=== PATIENT | female | born 1970 | race Caucasian/White ===

== ENCOUNTER 2019-03-01 10:51 | Observation (INO) | payer OTHER ==
[2019-03-01] MEDS ORDERED: DEMEROL 50 MG SDV IV ONE (11:49)
[2019-03-01] MEDS ORDERED: VERSED 5 MG/5 ML IV ONE (11:49)
[2019-03-01] MEDS ORDERED: Sodium Chloride 0.9% 1000 ML 1,000 ML IV STA (12:29)
[2019-03-01] MEDS ORDERED: PHARMACY DOSING REQUIRED: VANCOMYCIN IV ONE (12:29)
[2019-03-01] MEDS ORDERED: PHARMACY DOSING REQUEST MC ONE (12:47)
[2019-03-01] MEDS: MORPHINE SULFATE 2 MG INJ IV PRN ×2 (12:59→22:17)
[2019-03-01] MEDS: Sodium Chloride 0.9% 1000 ML 1,000 ML IV SCH (13:00)
[2019-03-01 13:01] LABS: Absolute Neutrophil Ct (ANC) 7.92 (1.4-6.9); BASOPHIL % 0.2 % (0.0-0.4); Basophil (Absolute #) 0.02 (0-0.4); Eosinophil % 0.7 % (0.00-5.0); Eosinophil (Absolute #) 0.09 (0-0.5); Hematocrit 39.9 % (35-47); Hemoglobin 13.3 gm/dl (12.0-16.0); Lymphocyte (Absolute #) 3.49 (1.0-4.6); Lymphocytes % 27.3 % (24.0-44.0); Mean Cell Volume 88.1 fl (78-100); Mean Corpuscular Hemoglobin 29.4 pg (26-32); Mean Corpuscular Hgb Concent. 33.3 g/dl (32-36); Monocyte (Absolute #) 1.28 (0.0-1.3); Neutrophil % 61.8 % (36.0-66.0); Platelet Count 293 K/mm3 (150-450); Red Blood Count 4.53 M/mm3 (4.1-5.4); Red Cell Distribution Width 13.5 % (11.5-14.0); White Blood Count 12.8 K/mm3 (4.0-10.5)
[2019-03-01 13:04] LABS: Lactic Acid 1.9 (0.4-2.0)
[2019-03-01] MEDS ORDERED: NON-FORMULARY ITEM (Naratriptan Hcl [Amerge] 2.5 MG) PO PRN (13:55)
[2019-03-01] MEDS ORDERED: NON-FORMULARY ITEM (Semaglutide [Ozempic] 0.25 MG) SQ SCH (14:00)
[2019-03-01] MEDS ORDERED: MEDICATION INTERVENTION MC SCH ×2 (14:15→14:45)
[2019-03-01 14:20] LABS: ALBUMIN 4.2 g/dL (3.5-5.0); ALKALINE PHOSPHATASE 78 U/L (38-126); ANION GAP 16.4 MEQ/L (5-15); BLOOD UREA NITROGEN 10 mg/dL (7-17); CHLORIDE 102 mmol/L (98-107); Calcium 10.1 mg/dL (8.4-10.2); Carbon Dioxide 28 mmol/L (22-30); Creatinine 1 0.58 mg/dL (0.52-1.04); Glucose 202 mg/dL (74-106); Potassium 4.3 mmol/L (3.5-5.1); SGOT/AST 17 U/L (14-36); SGPT/ALT 11 U/L (0-35); SODIUM 141 mmol/L (137-145); Total Protein 7.8 g/dL (6.3-8.2)
[2019-03-01] MEDS: CLINDAMYCIN-D5W 600 MG/50 ML*** 600 MG/50 ML BAG IV SCH ×2 (14:21→21:12)
[2019-03-01] MEDS: VANCOMYCIN 1 GRAM/200 ML BAG 1 GM/200 ML PIGGYBACK IV SCH ×2 (14:21→22:22)
[2019-03-01] MEDS: TORAdol 30 mg Injection IV PRN (14:45)
[2019-03-01] MEDS: DESYREL 50 MG PO SCH ×2 (14:45→22:21)
[2019-03-01] MEDS ORDERED: MOTRIN 400 MG PO SCH (15:00)
--- NOTE | 2019-03-01 17:54 | PCM.HP ---
History of Present Illness - Chief Complaint Chief Complaint: cellulitis right 3rd digit for 3 days History of Present Illness: is a 48 year old female hurt by nail on her 3rd digit - Review of Systems Constitutional: No Fever, No Chills Eyes: No Symptoms Ears, Nose, & Throat: No Symptoms Respiratory: No Cough, No Short Of Breath Cardiac: No Chest Pain, No Edema, No Syncope Abdominal/Gastrointestinal: No Abdominal Pain, No Nausea, No Vomiting, No Diarrhea Genitourinary Symptoms: No Dysuria Musculoskeletal: No Back Pain, No Neck Pain Skin: Cellulitis, Induration (left 3rd digit distal phalynx), No Rash Neurological: No Dizziness, No Focal Weakness, No Sensory Changes Psychological: No Symptoms Endocrine: No Symptoms Hematologic/Lymphatic: No Symptoms Immunological/Allergic: No Symptoms Medications & Allergies Home Medications: Home Medication List Divalproex Sodium [Depakote] 1,000 mg PO BID 01/11/17 [History Confirmed ] Gabapentin 100 mg PO BID 01/11/17 [History Confirmed 03/01/19] Trazodone HCl 50 mg [Desyrel 50 mg] 50 mg PO TID 01/11/17 [History Confirmed 03/01/19] Atorvastatin Calcium 40 mg PO DAILY 03/01/19 [History Confirmed 03/01/19] Clonazepam 0.5 mg [Klonopin 0.5 MG] 0.5 mg PO HS 03/01/19 [History Confirmed 03/01/19] Escitalopram Oxalate 10 mg [Lexapro 10 MG] 10 mg PO DAILY 03/01/19 [History Confirmed 03/01/19] Famotidine 20 mg [Pepcid 20 MG] 20 mg PO BID 03/01/19 [History Confirmed 03/01/19] Ibuprofen 400 mg PO TID 03/01/19 [History Confirmed 03/01/19] Insulin Glargine,Hum.rec.anlog [Basaglar Kwikpen U-100] 70 unit SQ HS 03/01/19 [ History Confirmed 03/01/19] Lisinopril [Zestril] 2.5 mg PO DAILY 03/01/19 [History Confirmed 03/01/19] Naratriptan HCl [Amerge] 2.5 mg PO BID PRN 03/01/19 [History Confirmed 03/01/19] Semaglutide [Ozempic] 0.25 mg SQ WEEKLY 03/01/19 [History Confirmed 03/01/19] Allergies/Adverse Reactions: Allergies Allergy/AdvReac Type Severity Reaction Status Date / Time metformin AdvReac Verified 03/01/19 12:58 - Past Medical History Past Medical History: Yes Neurological History: Migraines, Seizures ENT History: No Pertinent History Cardiac History: No Pertinent History Respiratory History: No Pertinent History Endocrine Medical History: Diabetes Type II Musculoskelatal History: Arthritis GI Medical History: Ulcer History: No Pertinent History Pyscho-Social History: Anxiety, Depression Reproductive Disorders: Other Comment: HEAD CONTUSION WHILE IN [employer]. - Female History Are you now?: No - Past Surgical History Past Surgical History: Yes Neuro Surgical History: No Pertinent History Cardiac History: No Pertinent History Respiratory Surgery: No Pertinent History GI Surgical History: Cholecystectomy Genitourinary Surgical Hx: No Pertinent History Musculskeletal Surgical Hx: Orthopedic Surgery Female Surgical History: Hysterectomy Other Surgical History: CARPAL TUNNEL. LOWER BACK. - Social History Smoking Status: Never smoker Alcohol: None - Physical Exam Vital Signs: Vital Signs - 24 hr Temp Pulse Resp BP Pulse Ox 03/01/19 16:00 98.7 F 85 18 100/57 95 03/01/19 12:22 99 F 99 H 20 136/80 General Appearance: no apparent distress, alert Neurologic Exam: alert, oriented x 3, cooperative, normal mood/affect, nml cerebellar function, nml station & gait, sensation nml, No motor deficits Eye Exam: PERRL/EOMI, eyes nml inspection Ears, Nose, Throat Exam: normal ENT inspection, TMs normal, pharynx normal, moist mucous membranes Neck Exam: normal inspection, non-tender, supple, full range of motion Respiratory Exam: normal breath sounds, lungs clear, No respiratory distress Cardiovascular Exam: regular rate/rhythm, normal heart sounds, normal peripheral pulses Gastrointestinal/Abdomen Exam: soft, normal bowel sounds, No tenderness, No mass Back Exam: normal inspection, normal range of motion, No CVA tenderness, No vertebral tenderness Extremity Exam: normal inspection, normal range of motion, pelvis stable, inflammation, swelling, tenderness Skin Exam: normal color, warm, dry, No rash Wound Assessment: Skin/Wound Assessment Wound/Incision Assessment Start: 03/01/19 11: 50 Text: Status: Active Freq: Q6H Protocol: Document 03/01/19 14:20 BA (Rec: 03/01/19 16:28 BA [id number]) Wound/Incision Assessment Right Hand Wound Assessment Admission Wound Type cellulitis/abcessed. Drainage Amount None Drainage Odor None/Absent General Appearance Well Approximated Surrounding Tissue Bright Red Purple Wound Photo Photo Taken Yes Date: 03/01/19 Time: 12:10 Distance from Wound: bedside. Lymphatic Exam: No adenopathy Results - Labs Lab/Micro Results: Accuchecks Date 03/01/19 Time 16:30 Accucheck Value: 169 Lab Results-Last 24 Hours 03/01/19 03/01/19 03/01/19 Range/Units 12:20 12:45 12:45 WBC 12.8 H (4.0-10.5) K/mm3 RBC 4.53 (4.1-5.4) M/mm3 Hgb 13.3 (12.0-16.0) gm/dl Hct 39.9 (35-47) % MCV 88.1 (78-100) fl MCH 29.4 (26-32) pg MCHC 33.3 (32-36) g/dl RDW 13.5 (11.5-14.0) % Plt Count 293 (150-450) K/mm3 MPV 11.0 H (6-9.5) fl Gran % 61.8 (36.0-66.0) % Eos # (Auto) 0.09 (0-0.5) Absolute Lymphs (auto) 3.49 (1.0-4.6) Absolute Monos (auto) 1.28 (0.0-1.3) Lymphocytes % 27.3 (24.0-44.0) % Monocytes % 10.0 (0.0-12.0) % Eosinophils % 0.7 (0.00-5.0) % Basophils % 0.2 (0.0-0.4) % Absolute Granulocytes 7.92 H (1.4-6.9) Basophils # 0.02 (0-0.4) Sodium 141 (137-145) mmol/L Potassium 4.3 (3.5-5.1) mmol/L Chloride 102 (98-107) mmol/L Carbon Dioxide 28 (22-30) mmol/L Anion Gap 16.4 H (5-15) MEQ/L BUN 10 (7-17) mg/dL Creatinine 0.58 (0.52-1.04) mg/dL Estimated GFR > 60.0 ML/MIN Glucose 202 H (74-106) mg/dL Hemoglobin A1c (4.5-6.0) % Lactic Acid 1.9 (0.4-2.0) Calcium 10.1 (8.4-10.2) mg/dL Total Bilirubin 0.60 (0.2-1.3) mg/dL AST 17 (14-36) U/L ALT 11 (0-35) U/L Alkaline Phosphatase 78 (38-126) U/L Serum Total Protein 7.8 (6.3-8.2) g/dL Albumin 4.2 (3.5-5.0) g/dL 03/01/19 Range/Units 14:30 WBC (4.0-10.5) K/mm3 RBC (4.1-5.4) M/mm3 Hgb (12.0-16.0) gm/dl Hct (35-47) % MCV (78-100) fl MCH (26-32) pg MCHC (32-36) g/dl RDW (11.5-14.0) % Plt Count (150-450) K/mm3 MPV (6-9.5) fl Gran % (36.0-66.0) % Eos # (Auto) (0-0.5) Absolute Lymphs (auto) (1.0-4.6) Absolute Monos (auto) (0.0-1.3) Lymphocytes % (24.0-44.0) % Monocytes % (0.0-12.0) % Eosinophils % (0.00-5.0) % Basophils % (0.0-0.4) % Absolute Granulocytes (1.4-6.9) Basophils # (0-0.4) Sodium (137-145) mmol/L Potassium (3.5-5.1) mmol/L Chloride (98-107) mmol/L Carbon Dioxide (22-30) mmol/L Anion Gap (5-15) MEQ/L BUN (7-17) mg/dL Creatinine (0.52-1.04) mg/dL Estimated GFR ML/MIN Glucose (74-106) mg/dL Hemoglobin A1c 7.33 H (4.5-6.0) % Lactic Acid (0.4-2.0) Calcium (8.4-10.2) mg/dL Total Bilirubin (0.2-1.3) mg/dL AST (14-36) U/L ALT (0-35) U/L Alkaline Phosphatase (38-126) U/L Serum Total Protein (6.3-8.2) g/dL Albumin (3.5-5.0) g/dL Accuchecks Date 03/01/19 Time 16:30 Accucheck Value: 169 Assessment/Plan (1) Cellulitis of fingernail of left hand Current Visit: Yes Status: Acute Assessment & Plan: Chief Complaint Diagnosis cellulitis right 3rd digit Allergies Allergy/AdvReac Type Severity Reaction Status Date / Time metformin AdvReac Verified 03/01/19 12:58 Vital Signs (Last 24 hours) Temp Pulse Resp BP Pulse Ox 03/01/19 16:00 98.7 F 85 18 100/57 95 03/01/19 12:22 99 F 99 H 20 136/80 Home Medications Medication Instructions Recorded Confirmed Last Taken Type Atorvastatin Calcium 40 mg PO DAILY 03/01/19 03/01/19 03/01/19 History Clonazepam 0.5 mg [Klonopin 0.5 0.5 mg PO HS 03/01/19 03/01/19 02/28/19 History MG] Escitalopram Oxalate 10 mg 10 mg PO DAILY 03/01/19 03/01/19 03/01/19 History [Lexapro 10 MG] Famotidine 20 mg [Pepcid 20 20 mg PO BID 03/01/19 03/01/19 03/01/19 History MG] Ibuprofen 400 mg PO TID 03/01/19 03/01/19 03/01/19 History Insulin Glargine,Hum.rec.anlog 70 unit SQ HS 03/01/19 03/01/19 02/28/19 History [Basaglar Kwikpen U-100] Lisinopril [Zestril] 2.5 mg PO DAILY 03/01/19 03/01/19 03/01/19 History Naratriptan HCl [Amerge] 2.5 mg PO BID PRN 03/01/19 03/01/19 03/01/19 History Semaglutide [Ozempic] 0.25 mg SQ WEEKLY 03/01/19 03/01/19 03/01/19 History Current Medications Generic Name Dose Route Start Last Admin Trade Name Freq PRN Reason Stop Dose Admin Clonazepam 0.5 mg 03/01/19 22:00 Klonopin 0.5 Mg PO 03/31/19 21:59 HS JIE Divalproex Sodium 1,000 mg 03/01/19 22:[address] 250 Mg Tab PO 03/31/19 21:59 BID JIE Escitalopram Oxalate 10 mg 03/02/19 10:00 Lexapro 10 Mg PO 04/01/19 09:59 DAILY JIE Famotidine 20 mg 03/01/19 22:00 Pepcid 20 Mg PO 03/31/19 21:59 BID JIE Gabapentin 100 mg 03/01/19 22:00 Neurontin 100 Mg PO 03/31/19 21:59 BID JIE Sodium Chloride 1,000 mls @ 150 mls/hr 03/01/19 12:45 03/01/19 13:00 Sodium Chloride 0.9% 1000 Ml IV 03/31/19 12:44 150 mls/hr .[id number] JIE Administration Vancomycin HCl 1 gm in 200 mls @ 120 mls/hr 03/01/19 13:30 03/01/19 14:21 Vancomycin 1 Gram/200 Ml Bag IV 03/31/19 13:29 120 mls/hr Q12HT JIE Administration Clindamycin HCl/Dextrose 600 mg in 50 mls @ 100 mls/hr 03/01/19 14:00 14:21 Clindamycin-D5w 600 Mg/50 Ml IV 03/31/19 13:59 100 mls/hr Q8HT JIE Administration Insulin Glargine 70 unit 03/01/19 22:00 Lantus Insulin SQ 03/31/19 21:59 HS JIE Ketorolac Tromethamine 30 mg 03/01/19 14:29 03/01/19 14:45 Toradol 30 Mg Injection IV 03/06/19 14:28 30 mg Q8H PRN PRN Administration PAIN Lisinopril 2.5 mg 03/02/19 10:00 Zestril 5 Mg PO 04/01/19 09:59 DAILY JIE Miscellaneous Information 0 each 03/01/19 14:15 Medication Intervention 03/31/19 14:14 .RN TO CHECK WITH PT [facility] Miscellaneous Information 0 each 03/01/19 14:45 Medication Intervention 03/31/19 14:44 .RN TO CHECK WITH PT JIE Morphine Sulfate 2 mg 03/01/19 12:47 03/01/19 12:59 Morphine Sulfate 2 Mg Inj IV 03/06/19 12:46 2 mg Q4H PRN PRN Administration PAIN Simvastatin 40 mg 03/02/19 22:00 Zocor 20mg PO 04/01/19 21:59 HS JIE Trazodone HCl 50 mg 03/01/19 15:00 03/01/19 14:45 Desyrel 50 Mg PO 03/31/19 14:59 50 mg TID JIE Administration Discontinued Medications Generic Name Dose Route Start Last Admin Trade Name Freq PRN Reason Stop Dose Admin Sodium Chloride 1,000 mls @ 999 mls/hr 03/01/19 12:29 03/01/19 13:00 Sodium Chloride 0.9% 1000 Ml IV 03/01/19 13:29 999 mls/hr .Q1H1M STA Administration Ibuprofen 400 mg 03/01/19 15:00 Motrin 400 Mg PO 03/31/19 14:59 TID JIE Non-Formulary Medication 1 each 03/01/19 12:29 03/01/19 16:59 Pharmacy Dosing Required: Vancomycin IV 03/01/19 12:30 1 each STAT ONE Administration Non-Formulary Medication 1 each 03/01/19 12:47 03/01/19 17:00 Pharmacy Dosing Request 03/01/19 12:48 1 each STAT ONE Administration Intake & Output (Last 24 hours) 02/27/19 02/28/19 03/01/19 03/02/19 11:59 11:59 11:59 11:59 Output Total 300 Balance -300 Weight 100.5 kg Microbiology Results (Last 24 hours) 03/01/19 12:45 Blood Blood Culture Gram Stain - Pending 03/01/19 12:45 Blood Blood Culture - Pending 03/01/19 12:45 Blood Blood Culture Gram Stain - Pending 03/01/19 12:45 Blood Blood Culture - Pending Laboratory Results (Last 24 hours) 03/01/19 03/01/19 03/01/19 14:30 12:45 12:45 WBC 12.8 H RBC 4.53 Hgb 13.3 Hct 39.9 MCV 88.1 MCH 29.4 MCHC 33.3 RDW 13.5 Plt Count 293 MPV 11.0 H Gran % 61.8 Eos # (Auto) 0.09 Absolute Lymphs (auto) 3.49 Absolute Monos (auto) 1.28 Lymphocytes % 27.3 Monocytes % 10.0 Eosinophils % 0.7 Basophils % 0.2 Absolute Granulocytes 7.92 H Basophils # 0.02 Sodium 141 Potassium 4.3 Chloride 102 Carbon Dioxide 28 Anion Gap 16.4 H BUN 10 Creatinine 0.58 Estimated GFR > 60.0 Glucose 202 H Hemoglobin A1c 7.33 H Lactic Acid Calcium 10.1 Total Bilirubin 0.60 AST 17 ALT 11 Alkaline Phosphatase 78 Serum Total Protein 7.8 Albumin 4.2 03/01/19 12:20 WBC RBC Hgb Hct MCV MCH MCHC RDW Plt Count MPV Gran % Eos # (Auto) Absolute Lymphs (auto) Absolute Monos (auto) Lymphocytes % Monocytes % Eosinophils % Basophils % Absolute Granulocytes Basophils # Sodium Potassium Chloride Carbon Dioxide Anion Gap BUN Creatinine Estimated GFR Glucose Hemoglobin A1c Lactic Acid 1.9 Calcium Total Bilirubin AST ALT Alkaline Phosphatase Serum Total Protein Albumin Orders (Last 24 hours) Category Date Time Status Accucheck ACHS Care 03/01/19 12:29 Active Miscellaneous Nursing Order ROUTINE Care 03/01/19 12:[address] in Observation ROUTINE Care 03/01/19 12:32 Active Consult Surgery ROUTINE Cons 03/01/19 12:29 Active 1800 Calorie ADA Diet 03/01/19 Lunch Active Nutritional Admission Screen once Diet 03/01/19 12:44 Active BLOOD CULTURE Urgent Lab 03/01/19 12:45 Received CBC W DIFF Routine Lab 03/01/19 12:45 Completed CMP Routine Lab 03/01/19 12:45 Completed CULTURE,WOUND Routine Lab 03/01/19 Uncollected HEMOGLOBIN A1C Urgent Lab 03/01/19 14:30 Completed Lactic Acid Routine Lab 03/01/19 12:20 Completed Clindamycin 600 mg/D5w 50 ml [Clindamycin-D5w 600 mg/ Med 03/01/19 14:00 Active 50 ml] 600 mg in 50 ml IV Q8HT Clonazepam 0.5 mg [Klonopin 0.5 MG] Med 03/01/19 22:00 Active 0.5 mg PO HS Divalproex Sodium 250 mg [Divalproex DR 250 mg Tab] Med 03/01/19 22:00 Active 1,000 mg PO BID Escitalopram Oxalate 10 mg [Lexapro 10 MG] Med 03/02/19 10:00 Active 10 mg PO DAILY Famotidine 20 mg [Pepcid 20 MG] Med 03/01/19 22:00 Active 20 mg PO BID Gabapentin 100 mg [Neurontin 100 MG] Med 03/01/19 22:00 Active 100 mg PO BID Ibuprofen 400 mg [Motrin 400 mg] Med 03/01/19 15:00 Discontinued 400 mg PO TID Insulin Glargine [Lantus Insulin] Med 03/01/19 22:00 Active 70 unit SQ HS KETOROLAC trometh 30 mg Inj [TORAdol 30 mg Injection Med 03/01/19 14:29 Active ] 30 mg IV Q8H PRN PRN Lisinopril 5 mg [Zestril 5 MG] Med 03/02/19 10:00 Active 2.5 mg PO DAILY Medication Intervention Med 03/01/19 14:15 Active 0 each MC .RN TO CHECK WITH PT Medication Intervention Med 03/01/19 14:45 Active 0 each MC .RN TO CHECK WITH PT Morphine Sulfate 2 mg Inj Med 03/01/19 12:47 Active 2 mg IV Q4H PRN PRN NaCl 0.9% 1000 ml [Sodium Chloride 0.9% 1000 ML] 1,000 Med 03/01/19 12:45 Active ml IV 150 mls/hr NaCl 0.9% 1000 ml [Sodium Chloride 0.9% 1000 ML] 1,000 Med 03/01/19 12:29 Discontinued ml IV 999 mls/hr Pharmacy Dose Request: Vancomy [Pharmacy Dosing Med 03/01/19 12:29 Discontinued Required: Vancomycin] 1 each IV STAT ONE Pharmacy Dosing Request Med 03/01/19 12:47 Discontinued 1 each MC STAT ONE Simvastatin 20Mg [Zocor 20Mg] Med 03/02/19 22:00 Active 40 mg PO HS Trazodone HCl 50 mg [Desyrel 50 mg] Med 03/01/19 15:00 Active 50 mg PO TID Vancomycin/Water For Inj (Peg) [Vancomycin 1 Gram/200 Med 03/01/19 13:30 Active ml Bag] 1 gm in 200 ml IV Q12HT OT Screen per Nursing Assess ONCE OT 03/01/19 12:44 Active PT Screen per Nursing Assess ONCE PT 03/01/19 12:44 Completed Patient Care Notes (Last 24 hours) 03/01/19 15:10 Nursing Note by Shraddha Benavidez called and obtained information on patient. He said he will probably drop by late this evening but definitely tomorrow a.m. just make npoo after midnight incase finger is needing I&D. Initialized on 03/01/19 15:10 - END OF NOTE 03/01/19 14:30 Nursing Note by Jessika Owen Pt continue to c/o r hand finger pain. Called Dr Alejandra; new order received. Initialized on 03/01/19 14:30 - END OF NOTE 03/01/19 13:09 Nursing Note by Shraddha Benavidez I called consult to office and spoke with Karen. is ammunition and explosives handler but they will let me know who will round on patient. Initialized on 03/01/19 13:09 - END OF NOTE Code(s): L03.012 - CELLULITIS OF LEFT FINGER (2) Diabetes mellitus Current Visit: Yes Status: Chronic Qualifiers: Diabetes mellitus type: type 2 Diabetes mellitus rodent exterminator insulin use: unspecified rodent exterminator insulin use status Code(s): E11.9 - TYPE 2 DIABETES MELLITUS WITHOUT COMPLICATIONS
[2019-03-01] MEDS ORDERED: NEURONTIN 300 MG PO SCH (22:00)
[2019-03-01] MEDS ORDERED: INSULIN GLARGINE HUM REC ANLOG 70 UNIT SQ SCH (22:00)
[2019-03-01] MEDS ORDERED: NON-FORMULARY ITEM (Divalproex Sodium [Depakote] 1,000 MG) PO SCH (22:00)
[2019-03-01] MEDS: Klonopin 0.5 MG PO SCH (22:21)
[2019-03-01] MEDS: Lantus Insulin SQ SCH (22:22)
[2019-03-01] MEDS: Pepcid 20 MG PO SCH (22:22)
[2019-03-01] MEDS: Neurontin 100 MG PO SCH (22:22)
[2019-03-02] MEDS: Sodium Chloride 0.9% 1000 ML 1,000 ML IV SCH (00:12)
[2019-03-02] MEDS: TORAdol 30 mg Injection IV PRN ×2 (04:04→19:57)
[2019-03-02] MEDS: CLINDAMYCIN-D5W 600 MG/50 ML*** 600 MG/50 ML BAG IV SCH ×3 (06:05→21:40)
--- NOTE | 2019-03-02 08:11 | CONS ---
CONSULT DATE: 03/01/2019 REASON FOR CONSULT: Infection of right third finger. HISTORY: The patient is seen at bedside. A 48 year-old diabetic long-standing with seven to eight day history of issues with this finger. There is a black eschar in the right third finger starting at the medial paronychia and then traversing across the midline over to right paronychia. It is fluctuant. It will require I&D. She has eaten today. This does not require I&D at this moment. There is a little swelling of the proximal interphalangeal joint. There is a little swelling of finger. She has been started on antibiotics. She has some elevation. We will jules this tomorrow.
--- NOTE | 2019-03-02 09:02 | PCM.NOTE ---
Date and Time: 03/02/19901 Subjective Assessment: doing ok - Review of Systems Constitutional: No Fever, No Chills Eyes: No Symptoms Ears, Nose, & Throat: No Symptoms Respiratory: No Cough, No Short Of Breath Cardiac: No Chest Pain, No Edema, No Syncope Abdominal/Gastrointestinal: No Abdominal Pain, No Nausea, No Vomiting, No Diarrhea Genitourinary Symptoms: No Dysuria Musculoskeletal: No Back Pain, No Neck Pain Skin: No Rash Neurological: No Dizziness, No Focal Weakness, No Sensory Changes Psychological: No Symptoms Endocrine: No Symptoms Hematologic/Lymphatic: No Symptoms Immunological/Allergic: No Symptoms Objective Exam General Appearance: no apparent distress, alert Neurologic Exam: alert, oriented x 3, cooperative, normal mood/affect, nml cerebellar function, sensation nml, No motor deficits Skin Exam: normal color, warm, dry Wound Assessment: Skin/Wound Assessment Wound/Incision Assessment Start: 03/01/19 11: 50 Text: Status: Active Freq: Q6H Protocol: Document 03/02/19 02:00 MG (Rec: 03/02/19 04:14 MG [id number]) Wound/Incision Assessment Right Hand Wound Assessment Admission Wound Type cellulitis/abcessed. Drainage Amount None Drainage Odor None/Absent General Appearance Well Approximated Surrounding Tissue Bright Red Purple Comment Tip of 3rd finger on right hand red/purple, moderate edema noted Eye Exam: PERRL, EOMI, eyes nml inspection Ears, Nose, Throat Exam: normal ENT inspection, pharynx normal, moist mucous membranes Neck Exam: normal inspection, non-tender, supple, full range of motion Respiratory Exam: normal breath sounds, lungs clear, No respiratory distress Cardiovascular Exam: regular rate/rhythm, normal heart sounds Gastrointestinal/Abdomen Exam: soft, No tenderness, No mass Extremity Exam: normal inspection, normal range of motion Back Exam: normal inspection, normal range of motion, No CVA tenderness, No vertebral tenderness Pelvic Exam: deferred Rectal Exam: deferred OBJECTIVE DATA Vital Signs: Vital Signs - 24 hr Temp Pulse Resp BP Pulse Ox 03/02/19 07:16 98.6 F 75 18 108/58 92 L 03/02/19 04:00 97.9 F 79 17 99/57 93 L 03/02/19 02:23 97.9 F 77 18 119/56 96 03/02/19 00:00 97.9 F 77 18 119/56 96 03/01/19 19:30 97.9 F 87 17 105/59 95 03/01/19 16:00 98.7 F 85 18 100/57 95 03/01/19 12:22 99 F 99 H 20 136/80 Pain Assessment - Last Documented Pain Intensity 7 [facility] Intake and Output: Intake & Output 02/27/19 02/28/19 03/01/19 03/02/19 11:59 11:59 11:59 11:59 Intake Total 3159 Output Total 550 Balance 2609 Weight 100.5 kg Lab Results: Accuchecks Date 03/01/19 Time 16:30 Accucheck Value: 217 Accucheck Value: 169 Lab Results-Last 24 Hours 03/01/19 03/01/19 03/01/19 Range/Units 12:20 12:45 12:45 WBC 12.8 H (4.0-10.5) K/mm3 RBC 4.53 (4.1-5.4) M/mm3 Hgb 13.3 (12.0-16.0) gm/dl Hct 39.9 (35-47) % MCV 88.1 (78-100) fl MCH 29.4 (26-32) pg MCHC 33.3 (32-36) g/dl RDW 13.5 (11.5-14.0) % Plt Count 293 (150-450) K/mm3 MPV 11.0 H (6-9.5) fl Gran % 61.8 (36.0-66.0) % Eos # (Auto) 0.09 (0-0.5) Absolute Lymphs (auto) 3.49 (1.0-4.6) Absolute Monos (auto) 1.28 (0.0-1.3) Lymphocytes % 27.3 (24.0-44.0) % Monocytes % 10.0 (0.0-12.0) % Eosinophils % 0.7 (0.00-5.0) % Basophils % 0.2 (0.0-0.4) % Absolute Granulocytes 7.92 H (1.4-6.9) Basophils # 0.02 (0-0.4) Sodium 141 (137-145) mmol/L Potassium 4.3 (3.5-5.1) mmol/L Chloride 102 (98-107) mmol/L Carbon Dioxide 28 (22-30) mmol/L Anion Gap 16.4 H (5-15) MEQ/L BUN 10 (7-17) mg/dL Creatinine 0.58 (0.52-1.04) mg/dL Estimated GFR > 60.0 ML/MIN Glucose 202 H (74-106) mg/dL Hemoglobin A1c (4.5-6.0) % Lactic Acid 1.9 (0.4-2.0) Calcium 10.1 (8.4-10.2) mg/dL Total Bilirubin 0.60 (0.2-1.3) mg/dL AST 17 (14-36) U/L ALT 11 (0-35) U/L Alkaline Phosphatase 78 (38-126) U/L Serum Total Protein 7.8 (6.3-8.2) g/dL Albumin 4.2 (3.5-5.0) g/dL 03/01/19 Range/Units 14:30 WBC (4.0-10.5) K/mm3 RBC (4.1-5.4) M/mm3 Hgb (12.0-16.0) gm/dl Hct (35-47) % MCV (78-100) fl MCH (26-32) pg MCHC (32-36) g/dl RDW (11.5-14.0) % Plt Count (150-450) K/mm3 MPV (6-9.5) fl Gran % (36.0-66.0) % Eos # (Auto) (0-0.5) Absolute Lymphs (auto) (1.0-4.6) Absolute Monos (auto) (0.0-1.3) Lymphocytes % (24.0-44.0) % Monocytes % (0.0-12.0) % Eosinophils % (0.00-5.0) % Basophils % (0.0-0.4) % Absolute Granulocytes (1.4-6.9) Basophils # (0-0.4) Sodium (137-145) mmol/L Potassium (3.5-5.1) mmol/L Chloride (98-107) mmol/L Carbon Dioxide (22-30) mmol/L Anion Gap (5-15) MEQ/L BUN (7-17) mg/dL Creatinine (0.52-1.04) mg/dL Estimated GFR ML/MIN Glucose (74-106) mg/dL Hemoglobin A1c 7.33 H (4.5-6.0) % Lactic Acid (0.4-2.0) Calcium (8.4-10.2) mg/dL Total Bilirubin (0.2-1.3) mg/dL AST (14-36) U/L ALT (0-35) U/L Alkaline Phosphatase (38-126) U/L Serum Total Protein (6.3-8.2) g/dL Albumin (3.5-5.0) g/dL Assessment/Plan (1) Cellulitis of fingernail of left hand Current Visit: Yes Status: Acute Assessment & Plan: Last Vital Signs Temp 98.6 F 03/02/19 07:16 Pulse 75 03/02/19 07:16 Resp 18 03/02/19 07:16 BP 108/58 03/02/19 07:16 Pulse Ox 92 L 03/02/19 07:16 Allergies latex Allergy (Verified 03/02/19 02:32) metformin Adverse Reaction (Verified 03/01/19 12:58) Active Medications Clonazepam (Klonopin 0.5 Mg) 0.5 mg PO HS JIE Stop: 03/31/19 21:59 Last Admin: 03/01/19 22:21 Dose: 0.5 mg Divalproex Sodium (Divalproex Dr 250 Mg Tab) 1,000 mg PO BID JIE Stop: 03/31/19 21:59 Last Admin: 03/01/19 22:21 Dose: 1,000 mg Escitalopram Oxalate (Lexapro 10 Mg) 10 mg PO DAILY JIE Stop: 04/01/19 09:59 Famotidine (Pepcid 20 Mg) 20 mg PO BID JIE Stop: 03/31/19 21:59 Last Admin: 03/01/19 22:22 Dose: 20 mg Gabapentin (Neurontin 100 Mg) 100 mg PO BID JIE Stop: 03/31/19 21:59 Last Admin: 03/01/19 22:22 Dose: 100 mg Sodium Chloride (Sodium Chloride 0.9% 1000 Ml) 1,000 mls @ 150 mls/hr IV .Q6H40M JIE Stop: 03/31/19 12:44 Last Admin: 03/02/19 00:12 Dose: 150 mls/hr Vancomycin HCl (Vancomycin 1 Gram/200 Ml Bag) 1 gm in 200 mls @ 120 mls/hr IV Q12HT JIE Stop: 03/31/19 13:29 Last Admin: 03/01/19 22:22 Dose: 120 mls/hr Clindamycin HCl/Dextrose (Clindamycin-D5w 600 Mg/50 Ml) 600 mg in 50 mls @ 100 mls/hr IV Q8HT JIE Stop: 03/31/19 13:59 Last Admin: 03/02/19 06:05 Dose: 100 mls/hr Insulin Glargine (Lantus Insulin) 70 unit SQ HS JIE Stop: 03/31/19 21:59 Last Admin: 03/01/19 22:22 Dose: 70 unit Ketorolac Tromethamine (Toradol 30 Mg Injection) 30 mg IV Q8H PRN PRN PRN Reason: PAIN Stop: 03/06/19 14:28 Last Admin: 03/02/19 04:04 Dose: 30 mg Lisinopril (Zestril 5 Mg) 2.5 mg PO DAILY JIE Stop: 04/01/19 09:59 Miscellaneous Information (Medication Intervention) 0 each MC .RN TO CHECK WITH PT JIE Stop: 03/31/19 14:14 Miscellaneous Information (Medication Intervention) 0 each MC .RN TO CHECK WITH PT JIE Stop: 03/31/19 14:44 Morphine Sulfate (Morphine Sulfate 2 Mg Inj) 2 mg IV Q4H PRN PRN PRN Reason: PAIN Stop: 03/06/19 12:46 Last Admin: 03/01/19 22:17 Dose: 2 mg Simvastatin (Zocor 20mg) 40 mg PO HS JIE Stop: 04/01/19 21:59 Trazodone HCl (Desyrel 50 Mg) 50 mg PO TID JIE Stop: 03/31/19 14:59 Last Admin: 03/01/19 22:21 Dose: 50 mg Intake & Output 03/01/19 03/02/19 11:59 11:59 Intake Total 3159 Output Total 550 Balance 2609 Weight 100.5 kg Orders 03/01/19 12:29 Accucheck ACHS Consult Surgery ROUTINE 03/01/19 12:32 Miscellaneous Nursing Order ROUTINE Place in Observation ROUTINE 03/01/19 12:44 Nutritional Admission Screen OT Screen per Nursing Assess 03/01/19 12:45 BLOOD CULTURE Urgent NaCl 0.9% 1000 ml [Sodium Chloride 0.9% 1000 ML] 1,000 ml IV 150 mls/hr 03/01/19 12:47 Morphine Sulfate 2 mg Inj 2 mg IV Q4H PRN PRN 03/01/19 13:30 Vancomycin/Water For Inj (Peg) [Vancomycin 1 Gram/200 ml Bag] 1 gm in 200 ml IV Q12HT 03/01/19 14:00 Clindamycin 600 mg/D5w 50 ml [Clindamycin-D5w 600 mg/50 ml] 600 mg in 50 ml IV Q8HT 03/01/19 14:15 Medication Intervention 0 each MC .RN TO CHECK WITH PT 03/01/19 14:29 KETOROLAC trometh 30 mg Inj [TORAdol 30 mg Injection] 30 mg IV Q8H PRN PRN 03/01/19 14:45 Medication Intervention 0 each MC .RN TO CHECK WITH PT 03/01/19 15:00 Trazodone HCl 50 mg [Desyrel 50 mg] 50 mg PO TID 03/01/19 22:00 Clonazepam 0.5 mg [Klonopin 0.5 MG] 0.5 mg PO HS Divalproex Sodium 250 mg [Divalproex DR 250 mg Tab] 1,000 mg PO BID Famotidine 20 mg [Pepcid 20 MG] 20 mg PO BID Gabapentin 100 mg [Neurontin 100 MG] 100 mg PO BID Insulin Glargine [Lantus Insulin] 70 unit SQ HS 03/02/19 10:00 Escitalopram Oxalate 10 mg [Lexapro 10 MG] 10 mg PO DAILY Lisinopril 5 mg [Zestril 5 MG] 2.5 mg PO DAILY 03/02/19 22:00 Simvastatin 20Mg [Zocor 20Mg] 40 mg PO HS Lab Tests 03/01/19 03/01/19 03/01/19 12:20 12:45 12:45 WBC 12.8 H RBC 4.53 Hgb 13.3 Hct 39.9 MCV 88.1 MCH 29.4 MCHC 33.3 RDW 13.5 Plt Count 293 MPV 11.0 H Gran % 61.8 Eos # (Auto) 0.09 Absolute Lymphs (auto) 3.49 Absolute Monos (auto) 1.28 Lymphocytes % 27.3 Monocytes % 10.0 Eosinophils % 0.7 Basophils % 0.2 Absolute Granulocytes 7.92 H Basophils # 0.02 Sodium 141 Potassium 4.3 Chloride 102 Carbon Dioxide 28 Anion Gap 16.4 H BUN 10 Creatinine 0.58 Estimated GFR > 60.0 Glucose 202 H Hemoglobin A1c Lactic Acid 1.9 Calcium 10.1 Total Bilirubin 0.60 AST 17 ALT 11 Alkaline Phosphatase 78 Serum Total Protein 7.8 Albumin 4.2 03/01/19 14:30 WBC RBC Hgb Hct MCV MCH MCHC RDW Plt Count MPV Gran % Eos # (Auto) Absolute Lymphs (auto) Absolute Monos (auto) Lymphocytes % Monocytes % Eosinophils % Basophils % Absolute Granulocytes Basophils # Sodium Potassium Chloride Carbon Dioxide Anion Gap BUN Creatinine Estimated GFR Glucose Hemoglobin A1c 7.33 H Lactic Acid Calcium Total Bilirubin AST ALT Alkaline Phosphatase Serum Total Protein Albumin Code(s): L03.012 - CELLULITIS OF LEFT FINGER (2) Diabetes mellitus Current Visit: Yes Status: Chronic Qualifiers: Diabetes mellitus type: type 2 Diabetes mellitus extermination inspector insulin use: unspecified nursing home insulin use status Code(s): E11.9 - TYPE 2 DIABETES MELLITUS WITHOUT COMPLICATIONS
[2019-03-02] MEDS: Neurontin 100 MG PO SCH ×2 (09:29→21:41)
[2019-03-02] MEDS: Pepcid 20 MG PO SCH ×2 (09:29→21:42)
[2019-03-02] MEDS: Lexapro 10 MG PO SCH (09:30)
[2019-03-02] MEDS: Zestril 5 MG PO SCH (09:30)
[2019-03-02] MEDS: DESYREL 50 MG PO SCH ×3 (09:30→21:41)
[2019-03-02] MEDS ORDERED: Lactated Ringers 1,000 ML IV SCH (09:30)
[2019-03-02] MEDS: VANCOMYCIN 1 GRAM/200 ML BAG 1 GM/200 ML PIGGYBACK IV SCH ×2 (09:37→22:20)
[2019-03-02] MEDS ORDERED: NON-FORMULARY ITEM (Atorvastatin Calcium [Atorvastatin Calcium] 40 MG) PO SCH (10:00)
[2019-03-02] MEDS ORDERED: NON-FORMULARY ITEM (Lisinopril [Zestril] 2.5 MG) PO SCH (10:00)
[2019-03-02] MEDS: MORPHINE SULFATE 2 MG INJ IV PRN ×3 (10:05→22:20)
[2019-03-02] MEDS ORDERED: XYLOCAINE 1% HCL 20 ML MDV ONE (14:10)
[2019-03-02] MEDS ORDERED: Adacel Vial IM ONE (16:17)
[2019-03-02] MEDS: Lantus Insulin SQ SCH (21:41)
[2019-03-02] MEDS: Klonopin 0.5 MG PO SCH (21:41)
[2019-03-02] MEDS ORDERED: ZOCOR 20MG PO SCH (22:00)
[2019-03-03] MEDS: CLINDAMYCIN-D5W 600 MG/50 ML*** 600 MG/50 ML BAG IV SCH (05:26)
[2019-03-03] MEDS: MORPHINE SULFATE 2 MG INJ IV PRN (05:29)
[2019-03-03] MEDS: TORAdol 30 mg Injection IV PRN (08:17)
--- NOTE | 2019-03-03 08:28 | OP ---
SURGERY DATE/TIME: 03/02/2019 1405 PREOPERATIVE DIAGNOSIS: Right third finger paronychia, Staph. POSTOPERATIVE DIAGNOSIS: Right third finger paronychia, Staph. PROCEDURE: I&D of right third finger paronychia medial. SURGEON: Aurelio Duckworth M.D. ANESTHESIA: Digital block local. INDICATION: The patient has infected paronychia, a black eschar over the base of the third finger going both into the paronychia on the left and the right. DESCRIPTION OF PROCEDURE: She is taken to surgery. A digital block 1.5 cc of 1% lidocaine was placed medially and lateral at the interphalangeal joint area towards the volar surface slightly. Good block was present and this was lanced. Purulence obtained and another culture obtained. It was lanced from the medial side of the extensor surface totally expressed. Xeroform applied. The patient tolerated the procedure satisfactorily.
[2019-03-03] MEDS ORDERED: TROUGH DRUG LEVELS IJ ONE (09:30)
[2019-03-03] MEDS: DESYREL 50 MG PO SCH (09:31)
[2019-03-03] MEDS: Neurontin 100 MG PO SCH (09:32)
[2019-03-03] MEDS: Lexapro 10 MG PO SCH (09:32)
[2019-03-03] MEDS: Zestril 5 MG PO SCH (09:32)
[2019-03-03] MEDS: Pepcid 20 MG PO SCH (09:32)
--- NOTE | 2019-03-03 11:44 | PCM.DS ---
Discharge Summary Date of Admission: 03/01/19 11:48 Admitting Physician: TESSIE RICH Consults: Consults on Case 03/01/19 12:29 Consult Surgery ROUTINE Primary Care Provider: TESSIE RICH Allergies Allergies latex Allergy (Verified 03/02/19 02:32) metformin Adverse Reaction (Verified 03/01/19 12:58) Hospital Summary - Hospital Course Hospital Course: Chief Complaint Diagnosis cellulitis right 3rd digit for 3 days Allergies Allergy/AdvReac Type Severity Reaction Status Date / Time latex Allergy Verified 03/02/19 02:32 metformin AdvReac Verified 03/01/19 12:58 Vital Signs (Last 24 hours) Temp Pulse Resp BP Pulse Ox 03/03/19 07:49 98.4 F 80 20 113/64 97 03/03/19 05:00 97.6 F 75 16 108/57 92 L 03/03/19 00:45 97.7 F 75 18 119/68 98 03/02/19 20:34 97.8 F 76 18 115/60 97 03/02/19 17:30 78 18 124/69 93 L 03/02/19 16:30 98 F 82 114/60 94 L 03/02/19 16:00 97.6 F 77 118/58 96 03/02/19 15:30 97.6 F 86 106/65 94 L 03/02/19 15:15 97.4 F 84 116/65 97 03/02/19 15:00 81 106/51 92 L 03/02/19 14:45 97.4 F 84 102/62 95 03/02/19 11:53 97.7 F 74 20 99/57 94 L Home Medications Medication Instructions Recorded Confirmed Last Taken Type Atorvastatin Calcium 40 mg PO DAILY 03/01/19 03/01/19 03/01/19 History Clonazepam 0.5 mg [Klonopin 0.5 0.5 mg PO HS 03/01/19 03/01/19 02/28/19 History MG] Escitalopram Oxalate 10 mg 10 mg PO DAILY 03/01/19 03/01/19 03/01/19 History [Lexapro 10 MG] Famotidine 20 mg [Pepcid 20 20 mg PO BID 03/01/19 03/01/19 03/01/19 History MG] Ibuprofen 400 mg PO TID 03/01/19 03/01/19 03/01/19 History Insulin Glargine,Hum.rec.anlog 70 unit SQ HS 03/01/19 03/01/19 02/28/19 History [Basaglar Kwikpen U-100] Lisinopril [Zestril] 2.5 mg PO DAILY 03/01/19 03/01/19 03/01/19 History Naratriptan HCl [Amerge] 2.5 mg PO BID PRN 03/01/19 03/01/19 03/01/19 History Semaglutide [Ozempic] 0.25 mg SQ WEEKLY 03/01/19 03/01/19 03/01/19 History Ketorolac Tromethamine [Toradol] 10 mg PO QID 5 Days #20 tablet 03/03/19 Unknown Rx Levofloxacin [Levaquin] 500 mg PO DAILY 10 Days #10 tablet 03/03/19 Unknown Rx Current Medications Generic Name Dose Route Start Last Admin Trade Name Freq PRN Reason Stop Dose Admin Clonazepam 0.5 mg 03/01/19 22:00 03/02/19 21:41 Klonopin 0.5 Mg PO 03/31/19 21:59 0.5 mg HS JIE Administration Divalproex Sodium 1,000 mg 03/01/19 22:00 03/03/19 09:[address] 250 Mg Tab PO 03/31/19 21:59 1,000 mg BID JIE Administration Escitalopram Oxalate 10 mg 03/02/19 10:00 03/03/19 09:32 Lexapro 10 Mg PO 04/01/19 09:59 10 mg DAILY JIE Administration Famotidine 20 mg 03/01/19 22:00 03/03/19 09:32 Pepcid 20 Mg PO 03/31/19 21:59 20 mg BID JIE Administration Gabapentin 100 mg 03/01/19 22:00 03/03/19 09:32 Neurontin 100 Mg PO 03/31/19 21:59 100 mg BID JIE Administration Vancomycin HCl 1 gm in 200 mls @ 120 mls/hr 03/01/19 13:30 03/02/19 22:20 Vancomycin 1 Gram/200 Ml Bag IV 03/31/19 13:29 120 mls/hr Q12HT JIE Administration Clindamycin HCl/Dextrose 600 mg in 50 mls @ 100 mls/hr 03/01/19 14:00 05:26 Clindamycin-D5w 600 Mg/50 Ml IV 03/31/19 13:59 100 mls/hr Q8HT JIE Administration Insulin Glargine 70 unit 03/01/19 22:00 03/02/19 21:41 Lantus Insulin SQ 03/31/19 21:59 70 unit HS JIE Administration Ketorolac Tromethamine 30 mg 03/01/19 14:29 03/03/19 08:17 Toradol 30 Mg Injection IV 03/06/19 14:28 30 mg Q8H PRN PRN Administration PAIN Lisinopril 2.5 mg 03/02/19 10:00 03/03/19 09:32 Zestril 5 Mg PO 04/01/19 09:59 2.5 mg DAILY JIE Administration Miscellaneous Information 0 each 03/01/19 14:15 Medication Intervention 03/31/19 14:14 .RN TO CHECK WITH PT [facility] Miscellaneous Information 0 each 03/01/19 14:45 Medication Intervention 03/31/19 14:44 .RN TO CHECK WITH PT [facility] Morphine Sulfate 2 mg 03/01/19 12:47 03/03/19 05:29 Morphine Sulfate 2 Mg Inj IV 03/06/19 12:46 2 mg Q4H PRN PRN Administration PAIN Simvastatin 40 mg 03/02/19 22:00 03/02/19 21:42 Zocor 20mg PO 04/01/19 21:59 40 mg HS JIE Administration Trazodone HCl 50 mg 03/01/19 15:00 03/03/19 09:31 Desyrel 50 Mg PO 03/31/19 14:59 50 mg TID JIE Administration Discontinued Medications Generic Name Dose Route Start Last Admin Trade Name Freq PRN Reason Stop Dose Admin Device 1 03/03/19 09:30 Trough Drug Levels IJ 03/03/19 09:31 1XONLY ONE Diphtheria/Tetanus/Acell Pertussis 0.5 ml 03/02/19 16:17 03/02/19 17:27 Adacel Vial IM 03/02/19 16:18 0.5 ml .ONCE ONE Administration Sodium Chloride 1,000 mls @ 999 mls/hr 03/01/19 12:29 03/01/19 13:00 Sodium Chloride 0.9% 1000 Ml IV 03/01/19 13:29 999 mls/hr .Q1H1M STA Administration Sodium Chloride 1,000 mls @ 150 mls/hr 03/01/19 12:45 03/02/19 00:12 Sodium Chloride 0.9% 1000 Ml IV 03/31/19 12:44 150 mls/hr .Q6H40M JIE Administration Lactated Ringer's 1,000 mls @ 50 mls/hr 03/02/19 09:30 03/02/19 10:05 Lactated Ringers IV 03/03/19 05:29 50 mls/hr .Q20H JIE Administration Ibuprofen 400 mg 03/01/19 15:00 Motrin 400 Mg PO 03/31/19 14:59 TID JIE Lidocaine HCl Confirm 03/02/19 14:10 Xylocaine 1% Hcl 20 Ml Mdv Administered 03/02/19 14:11 Dose 20 ml .ROUTE .STK-MED ONE Meperidine HCl 25 mg 03/01/19 11:49 Demerol 50 Mg Sdv IV 03/01/19 11:50 .STK-MED ONE Midazolam HCl 2 mg 03/01/19 11:49 Versed 5 Mg/5 Ml IV 03/01/19 11:50 .STK-MED ONE Non-Formulary Medication 1 each 03/01/19 12:29 03/01/19 16:59 Pharmacy Dosing Required: Vancomycin IV 03/01/19 12:30 1 each STAT ONE Administration Non-Formulary Medication 1 each 03/01/19 12:47 03/01/19 17:00 Pharmacy Dosing Request MC 03/01/19 12:48 1 each STAT ONE Administration Intake & Output (Last 24 hours) 02/28/19 03/01/19 03/02/19 03/03/19 11:59 11:59 11:59 11:59 Intake Total 3159 2812 Output Total 550 3700 Balance 2609 -888 Weight 100.5 kg Microbiology Results (Last 24 hours) 03/02/19 14:27 Finger - R Third Wound Culture - Preliminary GRAM POSITIVE ID AND SENSITIVITY PENDING Laboratory Results (Last 24 hours) 03/03/19 09:40 Vancomycin Trough 7.12 L Orders (Last 24 hours) Category Date Time Status Miscellaneous Nursing Order ROUTINE Care 03/02/19 14:53 Active Miscellaneous Nursing Order ROUTINE Care 03/02/19 15:15 Active Discharge Routine Discharge 03/03/19 Ordered CULTURE,WOUND Routine Lab 03/02/19 14:27 Results Vancomycin, Trough Urgent Lab 03/03/19 09:40 Completed Diph,Pertuss(Acell),Tet Vac/Pf [Adacel Vial] Med 03/02/19 16:17 Discontinued 0.5 ml IM .ONCE ONE Lidocaine HCl 1% 20 ml Mdv [Xylocaine 1% HCl 20 ml Med 03/02/19 14:10 Discontinued Mdv] 20 ml .ROUTE .STK-MED ONE Simvastatin 20Mg [Zocor 20Mg] Med 03/02/19 22:00 Active 40 mg PO HS Therapuetic Drug Level Monitor [Trough Drug Levels] Med 03/03/19 09:30 Discontinued 1 IJ 1XONLY ONE Patient Care Notes (Last 24 hours) 03/03/19 10:30 (created 03/03/19 10:35) Case Management Note by Samantha Castaneda MD ORDER TO DC HOME TODAY. DENIES NEEDS FOR DISCHARGE. PLANS TO RETURN HOME TO [facility]. INDEPENDENT WITH ALL ADL'S. Initialized on 03/03/19 10:35 - END OF NOTE 03/02/19 14:45 (created 03/02/19 14:48) Nursing Note by Shraddha Benavidez Patient is back to the floor from o.r. Initialized on 03/02/19 14:48 - END OF NOTE 03/02/19 13:05 (created 03/02/19 14:17) Nursing Note by Shraddha Benavidez Patient went to [facility] for I&D. Initialized on 03/02/19 14:17 - END OF NOTE - Vitals & Intake/Output Vital Signs: Vital Signs Temperature 98.4 F 03/03/19 07:49 Pulse Rate 80 03/03/19 07:49 Respiratory Rate 20 03/03/19 07:49 Blood Pressure 113/64 03/03/19 07:49 O2 Sat by Pulse Oximetry 97 03/03/19 07:49 Intake & Output: Intake & Output 02/28/19 03/01/19 03/02/19 03/03/19 11:59 11:59 11:59 11:59 Intake Total 3159 2812 Output Total 550 3700 Balance 6149 -028 Weight 100.5 kg - Lab Result Diagrams: 03/01/19 12:45 03/01/19 12:45 Lab Results-Last 24 Hrs: Accuchecks Date 03/03/19 Date 03/02/19 Time 07:30 Time 16:30 Accucheck Value: 118 Accucheck Value: 148 Accucheck Value: 110 Lab Results-Last 24 Hours 03/03/19 Range/Units 09:40 Vancomycin Trough 7.12 L (10-20) ug/mL Micro Results-Entire Visit: Microbiology 03/02/19 14:27 Wound Culture - Preliminary Finger - R Third GRAM POSITIVE ID AND SENSITIVITY PENDING Accuchecks Date 03/03/19 Date 03/02/19 Time 07:30 Time 16:30 Accucheck Value: 118 Accucheck Value: 148 Accucheck Value: 110 - Procedures and Test Procedures and Tests throughout Hospitalization: Therapy Orders & Screens 03/01/19 12:44 OT Screen per Nursing Assess Comment: Protocol Order Physician Instructions: Greater than 3 points order OT Admission Screening Reason For Exam: Triggered on Admission Diagnosis: cellulitis right 3rd digit Open Wound/Cellutlitis/Pressure Ulcers: Yes Acute Fx/ORIF/Change in wt bearing status: No Severe MUSCULOSKELETAL pain: No ADL Dysfunction: No Acute CVA w/Hemiparesis/Hemiplegia: No Decreased Functional Mobility/Strength: No Sprain/Strain: No Acute Post-op Mobility Dysfunction: No Total Points: 5 PT Screen per Nursing Assess ONCE Comment: Protocol Order Physician Instructions: Greater than 3 points order PT Admission Screenin Reason For Exam: Triggered on Admission Diagnosis: cellulitis right 3rd digit Open Wound/Cellutlitis/Pressure Ulcers: Yes Acute Fx/ORIF/Change in wt bearing status: No Severe MUSCULOSKELETAL pain: No ADL Dysfunction: No Acute CVA w/Hemiparesis/Hemiplegia: No Decreased Functional Mobility/Strength: No Sprain/Strain: No Acute Post-op Mobility Dysfunction: No Total Points: 5 Discharge Exam General Appearance: no apparent distress, alert Neurologic Exam: alert, oriented x 3, cooperative, normal mood/affect, nml cerebellar function, sensation nml, No motor deficits Eye Exam: PERRL, EOMI, eyes nml inspection Ears, Nose, Throat Exam: normal ENT inspection, pharynx normal, moist mucous membranes Neck Exam: normal inspection, non-tender, supple, full range of motion Respiratory Exam: normal breath sounds, lungs clear, No respiratory distress Cardiovascular Exam: regular rate/rhythm, normal heart sounds Gastrointestinal/Abdomen Exam: soft, No tenderness, No mass Pelvic Exam: deferred Rectal Exam: deferred Back Exam: normal inspection, normal range of motion, No CVA tenderness, No vertebral tenderness Extremity Exam: normal inspection, normal range of motion Skin Exam: normal color, warm, dry Wound Assessment: Skin/Wound Assessment Wound/Incision Assessment Start: 03/01/19 11: 50 Text: Status: Active Freq: Q6H Protocol: Document 03/03/19 11:02 BE (Rec: 03/03/19 11:04 BE [id number]) Wound/Incision Assessment Right Hand Wound Assessment Shift Assessment Wound Type Incision Wound Stage Non Pressure Wound Dressing Status Changed Drainage Amount Minimal Drainage Description Serosanguineous Drainage Odor None/Absent General Appearance Reddened Wound Bed Greatest Portion Blanched/Dull Wound Bed Lesser Portion Red (Granulation) Dusky Red Surrounding Tissue Blanched/Dull Topical Solution/Irrigant Saline Irrigant Primary Dressing xeroform Secondary Dressing Gauze Roll/Wrap Comment patient tolerated dressing change well. educated on wound care, keeping clean and dry and covered. verbalizes understanding Final Diagnosis/Problem List - Final Discharge Diagnosis/Problem (1) Cellulitis of fingernail of left hand Current Visit: Yes Status: Acute Assessment & Plan: Medication Report Clonazepam (Klonopin 0.5 Mg) 0.5 mg PO HS JIE Stop: 03/31/19 21:59 Last Admin: 03/02/19 21:41 Dose: 0.5 mg Divalproex Sodium (Divalproex Dr 250 Mg Tab) 1,000 mg PO BID JIE Stop: 03/31/19 21:59 Last Admin: 03/03/19 09:31 Dose: 1,000 mg Escitalopram Oxalate (Lexapro 10 Mg) 10 mg PO DAILY JIE Stop: 04/01/19 09:59 Last Admin: 03/03/19 09:32 Dose: 10 mg Famotidine (Pepcid 20 Mg) 20 mg PO BID [facility] Stop: 03/31/19 21:59 Last Admin: 03/03/19 09:32 Dose: 20 mg Gabapentin (Neurontin 100 Mg) 100 mg PO BID [facility] Stop: 03/31/19 21:59 Last Admin: 03/03/19 09:32 Dose: 100 mg Vancomycin HCl (Vancomycin 1 Gram/200 Ml Bag) 1 gm in 200 mls @ 120 mls/hr IV Q12HT JIE Stop: 03/31/19 13:29 Last Admin: 03/02/19 22:20 Dose: 120 mls/hr Clindamycin HCl/Dextrose (Clindamycin-D5w 600 Mg/50 Ml) 600 mg in 50 mls @ 100 mls/hr IV Q8HT [facility] Stop: 03/31/19 13:59 Last Admin: 03/03/19 05:26 Dose: 100 mls/hr Insulin Glargine (Lantus Insulin) 70 unit SQ HS JIE Stop: 03/31/19 21:59 Last Admin: 03/02/19 21:41 Dose: 70 unit Ketorolac Tromethamine (Toradol 30 Mg Injection) 30 mg IV Q8H PRN PRN PRN Reason: PAIN Stop: 03/06/19 14:28 Last Admin: 03/03/19 08:17 Dose: 30 mg MAR PAIN Document 03/03/19 08:17 BE (Rec: 03/03/19 08:19 BE [id number]) Reassesment Pain Site Right Location Finger Pain Scale Used 0-10 Pain Scale Pain Intensity (0-10) 7 Lisinopril (Zestril 5 Mg) 2.5 mg PO DAILY [facility] Stop: 04/01/19 09:59 Last Admin: 03/03/19 09:32 Dose: 2.5 mg Morphine Sulfate (Morphine Sulfate 2 Mg Inj) 2 mg IV Q4H PRN PRN PRN Reason: PAIN Stop: 03/06/19 12:46 Last Admin: 03/03/19 05:29 Dose: 2 mg MAR PAIN Document 03/03/19 05:29 MG (Rec: 03/03/19 05:29 MG [id number]) Reassesment Pain Site Right Location Finger Pain Scale Used 0-10 Pain Scale Pain Intensity (0-10) 4 Comment 3rd finger Re-Assess: Pain Reassessment Document 03/03/19 05:59 MG (Rec: 03/03/19 06:11 MG [id number]) Pain Description Pain Scale Used FLACC Comment Pt sleeping Simvastatin (Zocor 20mg) 40 mg PO HS JIE Stop: 04/01/19 21:59 Last Admin: 03/02/19 21:42 Dose: 40 mg Trazodone HCl (Desyrel 50 Mg) 50 mg PO TID JIE Stop: 03/31/19 14:59 Last Admin: 03/03/19 09:31 Dose: 50 mg Discontinued Medications Diphtheria/Tetanus/Acell Pertussis (Adacel Vial) 0.5 ml IM .ONCE ONE Stop: 03/02/19 16:18 Last Admin: 03/02/19 17:27 Dose: 0.5 ml Sodium Chloride (Sodium Chloride 0.9% 1000 Ml) 1,000 mls @ 999 mls/hr IV .Q1H1M STA Stop: 03/01/19 13:29 Last Admin: 03/01/19 13:00 Dose: 999 mls/hr Infusion/Titration Document 03/01/19 13:00 BA (Rec: 03/01/19 13:00 BA [id number]) Dosing & Rate IV Rate 999 Increase/Decrease Started Cumulative Dose Not Applicable IV Intake Container Volume 1,000 Volume Adjustment/Waste 0 Sodium Chloride (Sodium Chloride 0.9% 1000 Ml) 1,000 mls @ 150 mls/hr IV .Q6H40M [facility] Stop: 03/31/19 12:44 Last Admin: 03/02/19 00:12 Dose: 150 mls/hr Infusion/Titration Document 03/02/19 00:12 MG (Rec: 03/02/19 00:12 MG [id number]) Dosing & Rate IV Rate 150 Increase/Decrease Started/Running Cumulative Dose Not Applicable IV Intake Cumulative Intake (Rx) 1,000 Container Volume 1,000 Volume Adjustment/Waste 0 Lactated Ringer's (Lactated Ringers) 1,000 mls @ 50 mls/hr IV .Q20H JIE Stop: 03/03/19 05:29 Last Admin: 03/02/19 10:05 Dose: 50 mls/hr Infusion/Titration Document 03/02/19 10:05 BE (Rec: 03/02/19 10:05 BE [id number]) Dosing & Rate IV Rate 50 Increase/Decrease Started Cumulative Dose Not Applicable IV Intake Container Volume 1,000 Volume Adjustment/Waste 0 Non-Formulary Medication (Pharmacy Dosing Required: Vancomycin) 1 each IV STAT ONE Stop: 03/01/19 12:30 Last Admin: 03/01/19 16:59 Dose: 1 each Comments: completed via pharmacy Non-Formulary Medication (Pharmacy Dosing Request) 1 each MC STAT ONE Stop: 03/01/19 12:48 Last Admin: 03/01/19 17:00 Dose: 1 each Comments: given per pharmacy. Code(s): L03.012 - CELLULITIS OF LEFT FINGER (2) Diabetes mellitus Current Visit: Yes Status: Chronic Code(s): E11.9 - TYPE 2 DIABETES MELLITUS WITHOUT COMPLICATIONS - Discharge Discharge Date: 03/03/19 Disposition: Home, Self-Care Condition: Stable Prescriptions: New Levofloxacin [Levaquin] 500 mg PO DAILY 10 Days #10 tablet Ketorolac Tromethamine [Toradol] 10 mg PO QID 5 Days #20 tablet Continue Trazodone HCl 50 mg [Desyrel 50 mg] 50 mg PO TID Gabapentin 100 mg PO BID Divalproex Sodium [Depakote] 1,000 mg PO BID Famotidine 20 mg [Pepcid 20 MG] 20 mg PO BID Ibuprofen 400 mg PO TID Escitalopram Oxalate 10 mg [Lexapro 10 MG] 10 mg PO DAILY Atorvastatin Calcium 40 mg PO DAILY Insulin Glargine,Hum.rec.anlog [Basaglar Kwikpen U-100] 70 unit SQ HS Naratriptan HCl [Amerge] 2.5 mg PO BID PRN PRN Reason: . Lisinopril [Zestril] 2.5 mg PO DAILY Clonazepam 0.5 mg [Klonopin 0.5 MG] 0.5 mg PO HS Semaglutide [Ozempic] 0.25 mg SQ WEEKLY Instructions: Diabetes Type 2 (DC), Wound Incision and Drainage (DC) Additional Instructions: CONTINUE TO CHECK BLOOD SUGARS BEFORE MEALS AND AT BEDTIME, THEY MAY RUN HIGHER BECAUSE OF THIS INFECTION. CALL DR. RICH IF THEY CONTINUE TO RUN HIGH. Follow up with: ALBERT KEMP [ACTIVE STAFF] - 03/07/19 12:55 pm TESSIE RICH MD [Primary Care Provider] - 03/13/19 9:30 am (at [email or web address])
[2019-03-03 12:01] VITALS: BP 131/62; PULSE 86; O2SAT 96
== END 2019-03-03 12:00 | disposition home or self-care (01) ==
LOC: MED SURG 11:48
PROVIDERS: ADMIT General Practice; ATTEND General Practice
DX: L03.012 Cellulitis of left finger (principal); B95.8 Unspecified staphylococcus as the cause of diseases classified elsewhere; E11.9 Type 2 diabetes mellitus without complications; Z79.4 Long term (current) use of insulin; Z79.899 Other long term (current) drug therapy; G40.909 Epilepsy, unspecified, not intractable, without status epilepticus; M19.90 Unspecified osteoarthritis, unspecified site
CPT/HCPCS: 26010; 36415; 80053; 80202; 82962; 83036; 83605; 85025; 87040; 87070; 87077; 87186; G0378; 90715; J1885; J2175; J2250; J2270; A9270-GY; J3370